=== PATIENT | female | born 1990 | race Caucasian/White ===

== ENCOUNTER 2017-01-05 18:34 | Emergency (ER) | payer OTHER ==
[~2017-01-05 18:34] MED LIST: ALBUTEROL17 GM INH; CIPRO PO; FLEXERIL PO; IBUPROFEN PO; IBUPROFEN800 MG PO; LIDOCAINE VISCOU1 ML PO; MACROBID100 MG PO; NAPROXEN PO; NO MEDICATIONS; NORCO 5/325 TAB1 TAB PO; PHENERGAN25 M1 PO; PREDNISONE50 MG PO; PRENATAL VITAMI1 TA4 PO; ROBAXIN500 MG PO; VICODIN 5/500 T1 TAB PO; ZITHROMAX PO; [UNRECOGNIZED DRUG - OTHER] PO
== END 2017-01-05 19:11 | disposition home or self-care (01) ==
LOC: SED 18:34
DX: K04.7 Periapical abscess without sinus (principal); K02.9 Dental caries, unspecified; F17.200 Nicotine dependence, unspecified, uncomplicated; Z88.0 Allergy status to penicillin
CPT/HCPCS: 99282